=== PATIENT | female | born 1995 | race Caucasian/White ===

== ENCOUNTER 2021-11-01 22:56 | Emergency (ER) | payer MEDICAID ==
[2021-11-01] MEDS ORDERED: Sodium Chloride 0.9% 1,000 ML IV SCH (23:45)
[2021-11-01] MEDS ORDERED: Prochlorperazine 10 MG/2 ML SDV IVPUSH ONE (23:56)
[2021-11-01] MEDS ORDERED: diphenhydrAMINE 50 MG/ML SDV IVPUSH ONE (23:57)
[2021-11-01] MEDS ORDERED: Ketorolac 30 MG/ML SDV IVPUSH ONE (23:57)
[2021-11-02] MEDS ORDERED: HYDROmorphone 0.5 MG/0.5 ML Syringe IVPUSH ONE (01:01)
== END 2021-11-02 02:08 | disposition home or self-care (01) ==
LOC: JP.ED 22:56
DX: G43.909 Migraine, unspecified, not intractable, without status migrainosus (principal)
CPT/HCPCS: 36415; 70450; 80053; 84443; 85025; 96374; 96375; 99282; 99284-25; J0780; J1200; J1885; J7030